=== PATIENT | female | born 1975 | race Caucasian/White ===

== ENCOUNTER 2020-09-02 11:43 | Emergency (ER) | payer MEDICARE, OTHER ==
[2020-09-02 11:50] VITALS: TEMP 98.1
--- NOTE | 2020-09-02 12:34 | XR ---
EXAMINATION TYPE: XR foot complete RT DATE OF EXAM: 09/02/2020 COMPARISON: None HISTORY: Pain posterior right arch TECHNIQUE: Three-view right foot FINDINGS: No acute fractures or dislocations are evident. Joint spaces appear preserved. Soft tissues appear normal. There is a small ossification proximal to the navicular. A defect within the navicular is present wit h smooth cortical margins. Old avulsion could be considered. Os Navicularis, a normal variant is wit hin the differential. IMPRESSION: 1. No acute osseous abnormality. 2. Old avulsion or secondary ossification center adjacent to the navicular may be present.
[2020-09-02 12:55] VITALS: BP 120/78; PULSE 68; RESP 18
[2020-09-02] MEDS ORDERED: KETOROLAC 15 MG/ML 1 ML VIAL IM STA (12:57)
--- NOTE | 2020-09-02 13:07 | US ---
EXAMINATION TYPE: US venous doppler duplex LE RT DATE OF EXAM: 09/02/2020 12:48 PM COMPARISON: NONE CLINICAL HISTORY: foot swelling, calf pain. foot swelling, calf pain x 1 week, no h/o dvt SIDE PERFORMED: Right TECHNIQUE: The lower extremity deep venous system is examined utilizing real time linear array sonog farzana with graded compression, doppler sonography and color-flow sonography. VESSELS IMAGED: Common Femoral Vein Deep Femoral Vein Greater Saphenous Vein * Femoral Vein Popliteal Vein Small Saphenous Vein * Proximal Calf Veins (* superficial vessels) There is normal flow, compressibility, vascular waveforms. Right Leg: Negative for DVT IMPRESSION: No evident deep venous thrombosis at or above the right knee
[2020-09-02] MEDS ORDERED: ACET/COD 300 MG/30 MG STARTER PACK 6 TAB BTL PO STA (13:10)
--- NOTE | 2020-09-02 13:11 | ED ---
Lower Extremity Injury HPI - General Chief Complaint: Extremity Injury, Lower Stated Complaint: rt foot injury Time Seen by Provider: 09/02/20 12:02 Source: patient Mode of arrival: ambulatory Limitations: physical limitation - History of Present Illness Initial Comments: 45-year-old female presenting today for chief complaint of right foot pain. She states she woke up with right foot pain she states as long the inner arch of the right foot. Patient notes some mild swelling and she states the pain extends towards her right calf. Patient denies any redness she denies any known injury. Patient denies a discoloration of the foot. Remaining review of systems negative upon arrival patient appears well and nontoxic distress she is rubbing the right foot. pt wear crocs daily. - Related Data Allergies Allergy/AdvReac Type Severity Reaction Status Date / Time clindamycin Allergy Rash/Hives Verified 09/02/20 11:52 erythromycin base Allergy Dyspnea Verified 09/02/20 11:52 [From Erythrocin] acetaminophen [From Vicodin] AdvReac migraine Verified 09/02/20 11:52 citalopram [From Celexa] AdvReac suicidal Verified 09/02/20 11:52 idealation duloxetine [From Cymbalta] AdvReac suicidal Verified 09/02/20 11:52 idealation hydrocodone [From Vicodin] AdvReac migraine Verified 09/02/20 11:52 vancomycin AdvReac high blood Verified 09/02/20 11:52 pressure Review of Systems ROS Statement: Those systems with pertinent positive or pertinent negative responses have been documented in the HPI. ROS Other: All systems not noted in ROS Statement are negative. Past Medical History Past Medical History: Asthma, Fibromyalgia Additional Past Medical History / Comment(s): missing humerus rt arm History of Any Multi-Drug Resistant Organisms: None Reported Past Surgical History: Hysterectomy Additional Past Surgical History / Comment(s): rt arm Past Psychological History: Depression Smoking Status: Current every day smoker Past Alcohol Use History: None Reported Past Drug Use History: None Reported General Exam - General Exam Comments Initial Comments: General: The patient is awake and alert, in no distress Eye: +3 mm pupils are equal, round and reactive to light, extra-ocular movements are intact. No nystagmus. There is normal conjunctiva bilaterally. No signs of icterus. Gastrointestinal: Soft, non-distended, non-tender abdomen without masses or organomegaly noted. There is no rebound or guarding present. Musculoskeletal: Slight swelling on dorsum of right foot, no discoloration/redness/ecchymosis. pt can weight bear. pain to palpation on inner arch of the right foot. Normal ROM, no tenderness. Strength 5/5 of the LE b.l. Sensation intact of the LE b/l. Radial and DP pulses equal bilaterally 2+. calf mildly tender to palpation with no swelling (right sided) Neurological: A&O x 3. CN II-XII intact grossly, There are no obvious motor or sensory deficits. Coordination appears grossly intact. Speech is normal. Skin: Skin is warm and dry and no rashes or lesions are noted. Psychiatric: Cooperative, appropriate mood & affect, normal judgment. Limitations: physical limitation Course Vital Signs 09/02/20 09/02/20 11:47 12:51 Temperature 98.1 F Pulse Rate 62 68 Respiratory 16 18 Rate Blood Pressure 148/82 120/78 O2 Sat by Pulse 95 93 L Oximetry Medical Decision Making - Medical Decision Making US (-) DVT. XR (-) fracture. Likely suspect plantar fasciitis. Recommend symptomatically treatment with orthopedic follow-up for persistent symptoms patient is agreeable to this care plan discharge at this time. As is attending provider. Disposition Clinical Impression: Right foot pain, Plantar fasciitis Disposition: HOME SELF-CARE Condition: Good Instructions (If sedation given, give patient instructions): Plantar Fasciitis (ED) Additional Instructions: Please use medication as discussed. Please follow-up with family doctor in the next 2 days, orthopedic surgery f/u required for persistent symptoms. Please return to emergency room if the symptoms increase or worsen or for any other concerns. Is patient prescribed a controlled substance at d/c from ED?: No Referrals: Edgardo Merlos MD [Primary Care Provider] - 1-2 days Dimitri Melgoza DO [Doctor of Osteopathic Medicine] - 1-2 days Time of Disposition: 13:10
== END 2020-09-02 13:35 | disposition home or self-care (01) ==
LOC: EC 11:43
DX: M72.2 Plantar fascial fibromatosis (principal); F17.200 Nicotine dependence, unspecified, uncomplicated; Z88.5 Allergy status to narcotic agent; Z88.8 Allergy status to other drugs, medicaments and biological substances; Z88.1 Allergy status to other antibiotic agents
CPT/HCPCS: 73630; 93971; 99284; 96372; J1885

== ENCOUNTER 2020-09-26 10:48 | Emergency (ER) | payer MEDICARE, OTHER ==
[2020-09-26 10:56] VITALS: BP 140/74; PULSE 62; RESP 18; TEMP 98.5
[2020-09-26] MEDS ORDERED: TOPICAL SKIN ADHESIVE 1 EACH AMP TOPICAL ONE (11:30)
[2020-09-26] MEDS ORDERED: CEPHALEXIN 500MG STARTER PACK 4 CAP BTL PO STA (11:36)
--- NOTE | 2020-09-26 11:36 | ED ---
Wound/Laceration HPI - General Chief Complaint: Wound/Laceration Stated Complaint: toe lac Time Seen by Provider: 09/26/20 11:03 Source: patient Mode of arrival: ambulatory Limitations: no limitations - History of Present Illness Initial Comments: 45yo female presenting right great toe pain, denies hx DM. pt states that she up at 4am and going down steps when she slid her toe across a metal step edge and it caught skin. she states it bled and she went back to sleep. pt states that she didnt know if her tetanus was up to date or if it needed repair so she presented to the ER. Remaining ROS (-). denies stubbing toe-states pain only at skin flap site. - Related Data Previous Rx's Medication Instructions Recorded Cephalexin [Keflex] 500 mg PO Q6HR 7 Days #28 cap 09/26/20 Allergies Allergy/AdvReac Type Severity Reaction Status Date / Time clindamycin Allergy Rash/Hives Verified 09/26/20 10:56 erythromycin base Allergy Dyspnea Verified 09/26/20 10:56 [From Erythrocin] acetaminophen [From Vicodin] AdvReac migraine Verified 09/26/20 10:56 citalopram [From Celexa] AdvReac suicidal Verified 09/26/20 10:56 idealation duloxetine [From Cymbalta] AdvReac suicidal Verified 09/26/20 10:56 idealation hydrocodone [From Vicodin] AdvReac migraine Verified 09/26/20 10:56 vancomycin AdvReac high blood Verified 09/26/20 10:56 pressure Review of Systems ROS Statement: Those systems with pertinent positive or pertinent negative responses have been documented in the HPI. ROS Other: All systems not noted in ROS Statement are negative. Past Medical History Past Medical History: Asthma, Fibromyalgia Additional Past Medical History / Comment(s): missing humerus rt arm History of Any Multi-Drug Resistant Organisms: None Reported Past Surgical History: Hysterectomy Additional Past Surgical History / Comment(s): rt arm Past Psychological History: Depression Smoking Status: Current every day smoker Past Alcohol Use History: None Reported Past Drug Use History: None Reported General Exam - General Exam Comments Initial Comments: General: The patient is awake and alert, in no distress Eye: Pupils are equal, round and reactive to light, extra-ocular movements are intact. No nystagmus. There is normal conjunctiva bilaterally. No signs of icterus. Ears, nose, mouth and throat: There are moist mucous membranes and no oral lesions. Neck: The neck is supple, there is no tenderness or JVD. Cardiovascular: There is a regular rate and rhythm. No murmur, rub or gallop is appreciated. Respiratory: Lungs are clear to auscultation, respirations are non-labored, breath sounds are equal. No wheezes, stridor, rales, or rhonchi. Musculoskeletal: Normal ROM, no tenderness. Strength 5/5. Sensation intact. Radial pulses equal bilaterally 2+. Neurological: A&O x 3. CN II-XII intact grossly, There are no obvious motor or sensory deficits. Coordination appears grossly intact. Speech is normal. Skin: Skin is warm and dry and no rashes. superficial skin flat bottom of the right great toe, no active bleeding, very calloused skin Psychiatric: Cooperative, appropriate mood & affect, normal judgment. Limitations: no limitations Course Vital Signs 09/26/20 09/26/20 10:54 12:26 Temperature 98.5 F 98.5 F Pulse Rate 62 62 Respiratory 18 18 Rate Blood Pressure 140/74 140/74 O2 Sat by Pulse 95 95 Oximetry Medical Decision Making - Medical Decision Making 45yo female presenting for cc of toe laceration. skip flap on exam superficial. cleansed/irrigated. repaired with exofin. no history of DM. abx initiated. patietn agreeable to monitoring for infection, taking antibiotics and outpatient f/u. return for redness/drainage. refused imaging studies. no evidence of f oreign body on exam Disposition Clinical Impression: Toe laceration, Flap laceration of skin, Pain of right great toe Disposition: HOME SELF-CARE Condition: Good Instructions (If sedation given, give patient instructions): Skin Adhesive Care (ED) Additional Instructions: Please use medication as discussed. Please follow-up with family doctor in the next 2 days. Please return to emergency room if the symptoms increase or worsen or for any other concerns. Prescriptions: Cephalexin [Keflex] 500 mg PO Q6HR 7 Days #28 cap Is patient prescribed a controlled substance at d/c from ED?: No Referrals: Edgardo Merlos MD [Primary Care Provider] - 1-2 days Time of Disposition: 11:35
[2020-09-26] MEDS ORDERED: DIPH,PERTUS(ACELL)TETVAC-LF 0.5 ML VIAL IM ONE (11:56)
== END 2020-09-26 12:26 | disposition home or self-care (01) ==
LOC: EC 10:48
DX: S91.111A Laceration without foreign body of right great toe without damage to nail, initial encounter (principal); F17.200 Nicotine dependence, unspecified, uncomplicated; Z88.1 Allergy status to other antibiotic agents; Z88.5 Allergy status to narcotic agent; Z88.8 Allergy status to other drugs, medicaments and biological substances; Z23 Encounter for immunization; Z90.49 Acquired absence of other specified parts of digestive tract; W22.8XXA Striking against or struck by other objects, initial encounter
CPT/HCPCS: 90471; 90715; 99282

== ENCOUNTER 2020-11-21 11:40 | Emergency (ER) | payer MEDICARE, OTHER ==
[2020-11-21 12:06] VITALS: RESP 18
[2020-11-21] MEDS ORDERED: KETOROLAC 15 MG/ML 1 ML VIAL IM STA (13:18)
--- NOTE | 2020-11-21 13:26 | ED ---
General Adult HPI - General Chief complaint: Fall Stated complaint: rt hand injury Time Seen by Provider: 11/21/20 12:05 Source: patient, RN notes reviewed, old records reviewed Mode of arrival: ambulatory Limitations: no limitations - History of Present Illness Initial comments: This is a 45-year-old female presents emergency Department complaining of having fallen because she tripped over a dog she was walking. Patient complains of right hand pain particular the fifth metacarpal. Patient denies hitting her head or having any neck pain. Patient denies any chest or back pain. Patient denies any other extremity pain. Patient states she does not have a humerus in that arm secondary to a previous injury many years ago. - Related Data Home Medications Medication Instructions Recorded Confirmed ARIPiprazole [Abilify] 20 mg PO DAILY 11/21/20 11/21/20 FLUoxetine HCL [PROzac] 80 mg PO DAILY 11/21/20 11/21/20 Methenamine/Sodium Salicylate [Azo 1 tab PO DAILY 11/21/20 11/21/20 Urinary Tract Defense Tab] Pregabalin [Lyrica] 300 mg PO BID 11/21/20 11/21/20 buPROPion HCL [Wellbutrin XL] 150 mg PO DAILY 11/21/20 11/21/20 clonazePAM [KlonoPIN] 1 mg PO BID 11/21/20 11/21/20 oxyCODONE HCL [oxyCODONE HCL (IR)] 15 mg PO TID 11/21/20 11/21/20 Previous Rx's Medication Instructions Recorded Ibuprofen [Motrin] 600 mg PO Q6HR PRN #20 tab 11/21/20 Allergies Allergy/AdvReac Type Severity Reaction Status Date / Time clindamycin Allergy Rash/Hives Verified 11/21/20 13:55 erythromycin base Allergy Dyspnea Verified 11/21/20 13:55 [From Erythrocin] citalopram [From Celexa] AdvReac suicidal Verified 11/21/20 13:55 idealation duloxetine [From Cymbalta] AdvReac suicidal Verified 11/21/20 13:55 idealation hydrocodone [From Vicodin] AdvReac migraine Verified 11/21/20 13:55 vancomycin AdvReac high blood Verified 11/21/20 13:55 pressure Review of Systems ROS Statement: Those systems with pertinent positive or pertinent negative responses have been documented in the HPI. ROS Other: All systems not noted in ROS Statement are negative. Past Medical History Past Medical History: Asthma, Fibromyalgia Additional Past Medical History / Comment(s): missing humerus rt arm, History of Any Multi-Drug Resistant Organisms: None Reported Past Surgical History: Hysterectomy Additional Past Surgical History / Comment(s): rt arm Past Psychological History: Depression Smoking Status: Current every day smoker Past Alcohol Use History: None Reported Past Drug Use History: None Reported General Exam - General Exam Comments Initial Comments: GENERAL Patient is well-developed and well-nourished. Patient is in mild distress. EYES Patient's pupils are equal and round. Extraocular motion is intact SKIN Unremarkable NEURO The patient is alert and oriented 3 PYSCH Patient has normal interpersonal interactions. MUSCULOSKELETAL Patient has tenderness of the fifth metacarpal carpal Limitations: no limitations Course Vital Signs 11/21/20 11/21/20 12:03 14:05 Temperature 98.8 F 97.9 F Pulse Rate 87 79 Respiratory 18 18 Rate Blood Pressure 134/80 119/87 O2 Sat by Pulse 97 93 L Oximetry Medical Decision Making - Medical Decision Making X-ray of the hand shows no acute abnormality. X-ray of the knee shows some soft tissue swelling in the very small possible effusion. Patient does not want a knee brace she states she'll be fine without one. Disposition Clinical Impression: Fall, Knee strain, Hand contusion Disposition: HOME SELF-CARE Instructions (If sedation given, give patient instructions): Knee Pain (ED) Prescriptions: Ibuprofen [Motrin] 600 mg PO Q6HR PRN #20 tab PRN Reason: For pain Is patient prescribed a controlled substance at d/c from ED?: No Referrals: Edgardo Merlos MD [Primary Care Provider] - 1-2 days Kevin Gomez MD [STAFF PHYSICIAN] - 1-2 days Time of Disposition: 13:51
--- NOTE | 2020-11-21 13:41 | XR ---
EXAMINATION TYPE: XR knee complete RT DATE OF EXAM: 11/21/2020 COMPARISON: NONE HISTORY: 45-year-old female knee pain after fall TECHNIQUE: 3 views FINDINGS: There is a small knee joint effusion. Some prepatellar soft tissue swelling is noted. Tricompartmenta l degenerative spurring. No acute fracture, subluxation, dislocation seen. IMPRESSION: 1. Tricompartmental osteoarthrosis. 2. No acute osseous abnormality seen. 3. However, given the small knee joint effusion and anterior soft tissue swelling, if there is concer n for an occult osseous injury or internal derangement, MRI can be considered.
--- NOTE | 2020-11-21 13:42 | XR ---
EXAMINATION TYPE: XR hand complete RT DATE OF EXAM: 11/21/2020 COMPARISON: NONE HISTORY: 45-year-old female medial hand pain, trauma, fall TECHNIQUE: 3 views FINDINGS: There is some ulnar-sided soft tissue swelling at the wrist. Egrz-by-cgrlfygw degenerative change at the first CMC joint with marginal spurring. No acute fracture, subluxation, or dislocation seen. IMPRESSION: Ulnar-sided soft tissue swelling near the wrist. No acute osseous abnormality seen. Mild osteoarthrit ic change at the base of the thumb.
[2020-11-21 14:06] VITALS: BP 119/87; PULSE 79; TEMP 97.9
== END 2020-11-21 14:05 | disposition home or self-care (01) ==
LOC: EC 11:40
DX: S60.221A Contusion of right hand, initial encounter (principal); F17.200 Nicotine dependence, unspecified, uncomplicated; F32.9 Major depressive disorder, single episode, unspecified; J45.909 Unspecified asthma, uncomplicated; Z79.1 Long term (current) use of non-steroidal anti-inflammatories (NSAID); Z79.899 Other long term (current) drug therapy; W01.0XXA Fall on same level from slipping, tripping and stumbling without subsequent striking against object, initial encounter
CPT/HCPCS: 73130; 73562; 99283; 96372; J1885

== ENCOUNTER 2020-12-06 09:51 | Day surgery (SDC) | payer MEDICARE, OTHER ==
[2020-12-05 09:04] VITALS: BMI 51.0
[~2020-12-06 09:51] MED LIST: DEXAMETHASONE SOD PHOSPHATE 4 MG/ML 1 ML VIAL IV ONE; HEPARIN SODIUM,PORCINE 5,000 UNIT/ML 1 ML VIAL SQ PRN; HYDROmorphone 0.5 MG/0.5 ML SYRINGE IVP PRN; LACTATED RINGERS 1,000 ML IV SCH; LIDOCAINE 1% (10MG/ML) FOR IV START INTRADERMA PRN; MIDAZOLAM 2 MG/2 ML VIAL IV PRN; ONDANSETRON 4 MG/2 ML VIAL IVP ONE; ceFAZolin 3 GM in SODIUM CHLORIDE 0.9% 100 ML IVPB PRN
[2020-12-06] MEDS ORDERED: PHENYLEPHRINE-0.9% NACL SYG 1,000 MCG/10 ML SYRINGE ONE (11:25)
[2020-12-06] MEDS ORDERED: ROCURONIUM 10 MG/ML (5 ML VIAL) IV ONE (11:25)
[2020-12-06] MEDS ORDERED: GLYCOPYRROLATE 0.2 MG/ML 2 ML VIAL ONE (11:25)
[2020-12-06] MEDS ORDERED: LIDOCAINE 1% INJ 10MG/ML (20 ML MDV) ONE (11:25)
[2020-12-06] MEDS ORDERED: fentaNYL (PF) 50 MCG/ML 2 ML AMP ONE (11:25)
[2020-12-06] MEDS ORDERED: ALBUTEROL INHALER 60 PUFF/8 GM INHALER (MHU) INHALATION ONE (11:25)
[2020-12-06] MEDS ORDERED: SUCCINYLCHOLINE CHLORIDE VIAL 200 MG/10 ML VIAL IV ONE (11:25)
[2020-12-06] MEDS ORDERED: PROPOFOL 10 MG/ML 20 ML VIAL IV ONE (11:25)
[2020-12-06] MEDS ORDERED: NEOSTIGMINE 1 MG/ML 10 ML VIAL ONE (11:25)
[2020-12-06] MEDS ORDERED: BUPIVACAIN-EPI 0.5%-1:200,000 30 ML VIAL SQ ONE ×2 (11:47→12:34)
--- NOTE | 2020-12-06 12:49 | P.OP ---
Date of Procedure: 12/06/20 Preoperative Diagnosis: Incarcerated umbilical hernia Postoperative Diagnosis: Incarcerated umbilical hernia Procedure(s) Performed: Repair of incarcerated umbilical hernia with mesh placement, robotic Anesthesia: JAIRON Surgeon: Lupe Bro Pathology: none sent Condition: stable Disposition: same day Indications for Procedure: 45-year-old female presented to the surgery clinic with complaints of umbilical pain. On exam, patient was found to have an incarcerated umbilical hernia. Plan was made from chronic umbilical hernia repair with mesh. Risks, benefits and alternatives were provided to the patient and she did provide consent prior to attending the operating suite. Operative Findings: Umbilical hernia incarcerated with omentum Description of Procedure: The patient was brought into the operating suite and placed in supine position on the operating table. Gen. anesthesia with endotracheal intubation was performed as per anesthesia team. The right arm was tucked against the body and the footboard was applied. Patient was prepped and draped in regular sterile fashion. A timeout was performed to verify correct patient and correct procedure. Patient was confirmed received perioperative IV antibiotics, bilateral SCDs and 5000 units of subcutaneous heparin for DVT prophylaxis. A 5 mm incision was made along the left maxillary line at [place] point and the abdomen was entered under direct visualization using a Visiport. Pne umoperitoneum was achieved. The umbilical hernia was clearly visualized and was noted to be incarcerated with omentum. An additional 8 mm trocar was placed in the left lower abdomen and a 12 mm trocar was placed in the left mid abdomen. The initial 5 mm trocar was upsized to an 8 mm trocar. The da Jacquie robot was undocked. A 30 robotic camera was used. A robotic grasping instrument and monopolar scissors were inserted through the 8 mm robotic trochars. The hernia defect contained preperitoneal fat and omentum which was reduced using gentle traction and countertraction method with some cautery. The falciform ligament was divided using monopolar scissors close to the anterior abdominal wall to create a landing zone for the mesh. Hemostasis was maintained. A eelusion Echo system circular mesh was rolled and introduced into the abdominal cavity via the 12 mm trocar site. The hernia defect was closed primarily with running sutures using Bovie lock by taking 1 cm bite on the fascia and either side of the defect. A Lam-Dia device was inserted through the middle of the hernia defect and the stay suture on the mesh was grasped to elevate the mesh against the anterior abdominal wall. The mesh was circumferentially sutured to the peritoneum of the anterior abdominal wall using 20V lock without any folds or kinks. The robot was then undocked. Lap scopic 30 camera was reinserted. All trocar sites were examined. No evidence of bleeding. The 12 mm trocar site was closed using 2 transverse sutures of 0 Vicryl which were placed using a Lam-Ida device. The pneumoperitoneum was evacuated and the skin incisions were closed using 4-0 Monocryl followed by Dermabond skin glue. Sponge, instrument and needle count were correct 2. Abdominal binder was a pplied. The patient was extubated and taken to postanesthesia care unit in stable condition.
[2020-12-06 13:18] VITALS: TEMP 97.4
[2020-12-06 15:20] VITALS: RESP 18
[2020-12-06 16:29] VITALS: BP 113/65; PULSE 84
== END 2020-12-06 16:32 | disposition home or self-care (01) ==
LOC: OR 09:51
PROVIDERS: ATTEND Surgery
DX: K42.0 Umbilical hernia with obstruction, without gangrene (principal); J44.9 Chronic obstructive pulmonary disease, unspecified; K58.9 Irritable bowel syndrome, unspecified; F41.9 Anxiety disorder, unspecified; F32.9 Major depressive disorder, single episode, unspecified; F17.210 Nicotine dependence, cigarettes, uncomplicated; G47.30 Sleep apnea, unspecified; Z79.899 Other long term (current) drug therapy; Z81.8 Family history of other mental and behavioral disorders; Z82.49 Family history of ischemic heart disease and other diseases of the circulatory system; Z82.61 Family history of arthritis; Z82.5 Family history of asthma and other chronic lower respiratory diseases; Z83.3 Family history of diabetes mellitus; Z88.1 Allergy status to other antibiotic agents; Z88.8 Allergy status to other drugs, medicaments and biological substances
CPT/HCPCS: 94660; 81025; 49653; C1781; J0330; J1644; J1100; J2710; J0690; J2405; J2001; J3010; J2370; J2704

== ENCOUNTER → 2022-10-15 | Outpatient (CLI) | payer MEDICARE | END | disposition home or self-care (01) | LOC: LABWHC1 08:23 | PROVIDERS: ATTEND Physician Assistant | DX: F41.0 Panic disorder [episodic paroxysmal anxiety] (principal) | CPT/HCPCS: 36415; 93005 ==